=== PATIENT | male | born 2000 | race African-American/Black ===

== ENCOUNTER 2020-06-01 17:46 | Day surgery (SDC) | payer MEDICAID, OTHER ==
[~2020-06-01] VITALS: Ht 177.8 cm; Wt 76.0 kg
--- NOTE | 2020-06-01 19:13 | ECGEPIP ---
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
[2020-06-01 19:15] LABS: BASO % 0.7 % (0.0-1.0); EOS # 0.3 10^3/uL (0.0-0.5); EOS % 4.5 % (0.0-3.0); HEMATOCRIT 51.5 % (42.0-52.0); HEMOGLOBIN 16.8 g/dl (13.5-17.5); LYMPH # 1.7 10^3/uL (1.5-5.0); LYMPH % 29.9 % (24.0-44.0); MEAN CORPUSCULAR HEMOGLOBIN 27.7 pg (27.0-33.0); MEAN CORPUSCULAR HGB CONC 32.6 g/dl (32.0-36.5); MONO # 0.4 10^3/uL (0.0-0.8); MONO % 6.8 % (2.0-8.0); NEUTROPHILS # 3.3 10^3/uL (1.5-8.5); NEUTROPHILS % 57.9 % (36.0-66.0); PLATELET COUNT, AUTOMATED 191 10^3/uL (150-450); RED BLOOD COUNT 6.06 10^6/uL (4.30-6.10); WHITE BLOOD COUNT 5.7 10^3/uL (4.0-10.0)
[2020-06-01] MEDS ORDERED: ISOVUE-370 76% 100ML VIAL As Ordered ONE (19:20)
--- NOTE | 2020-06-01 19:55 | REPVR ---
PROCEDURE INFORMATION: Exam: CT Neck With Contrast Exam date and time: 06/01/2020 7:21 PM Age: 19 years old Clinical indication: Dysphagia / difficulty swallowing; Additional info: Unable to swallow ? perforation on x-ray TECHNIQUE: Imaging protocol: Computed tomography images of the neck with intravenous contrast. Radiation optimization: All CT scans at this facility use at least one of these dose optimization techniques: automated exposure control; mA and/or kV adjustment per patient size (includes targeted exams where dose is matched to clinical indication); or iterative reconstruction. Contrast material: ISOVUE 370; Contrast volume: 75 ml; Contrast route: INTRAVENOUS (IV); COMPARISON: No relevant prior studies available. FINDINGS: Nasopharynx: Adenoidal tonsillar hypertrophy. Oropharynx: Mild thickening of the tonsillar pillars demonstrated bilaterally with small gas locules demonstrated possibly representing abscesses or micro abscesses. Hypopharynx: Unremarkable. Larynx: Unremarkable. Normal epiglottis. Retropharyngeal space: Unremarkable. Submandibular/Parotid glands: Normal. Glands are normal in size. Thyroid: Normal. No enlarged or calcified nodules. Lymph nodes: Unremarkable. No lymphadenopathy. Trachea: Visualized trachea is unremarkable. Lungs: Unremarkable as visualized. Bones/joints: Unremarkable. No acute fracture. Soft tissues: Unremarkable. No significant soft tissue swelling. IMPRESSION: 1. Adenoidal tonsillar hypertrophy. 2. Mild thickening of the tonsillar pillars demonstrated bilaterally with small gas locules demonstrated possibly representing abscesses or micro abscesses. Electronically signed by: Maynor Cantor On 06/01/2020 19:55:33 PM
[2020-06-01] MEDS ORDERED: dexameTHASONE 20MG/5ML VIAL (J1100 PER 1MG) IV ONE (20:20)
[2020-06-01] MEDS ORDERED: AMPICILLIN SOD/SULBACTAM SOD 3 GM in D5W MINI-BAG PLUS 100 ML IV ONE (20:20)
[2020-06-01] MEDS ORDERED: MIDAZOLAM INJ 2MG/2ML VIAL (J2250 PER 1MG) As Ordered ONE (22:40)
[2020-06-01] MEDS ORDERED: propofoL 200 MG/20 ML VIAL As Ordered ONE (22:40)
[2020-06-01] MEDS ORDERED: ROCURONIUM BROMIDE 50 MG/5 ML VIAL As Ordered ONE (22:40)
[2020-06-01] MEDS ORDERED: LIDOCAINE 2% 100MG/5ML SDV (FOR ANES.) As Ordered ONE (22:40)
[2020-06-01] MEDS ORDERED: ONDANSETRON 4MG/2ML VIAL As Ordered ONE (22:41)
[2020-06-01] MEDS ORDERED: fentaNYL 100 MCG/2 ML INJECTION (J3010) As Ordered ONE (22:41)
[2020-06-01] MEDS ORDERED: dexameTHASONE 4 MG/ML 1ML VIAL (J1100 PER 1MG) As Ordered ONE (22:41)
[2020-06-01] MEDS ORDERED: SUCCINYLCHOLINE 100 MG/5 ML SYRINGE (J0330) As Ordered ONE (23:06)
--- NOTE | 2020-06-02 00:17 | ROOR ---
Patient Name: Garcia Tomlinson Procedure Date: 06/01/2020 9:27 PM Date of : 2000 Age: 19 Room: Main OR Gender: Male Note Status: Finalized Procedure: Upper GI endoscopy Indications: Foreign body in the esophagus Providers: Den GEE MD Referring MD: 3. Emergency Dept 3. Emergency Dept Requesting Provider: Medicines: Monitored Anesthesia Care Complications: No immediate complications. Procedure: Pre-Anesthesia Assessment: - The heart rate, respiratory rate, oxygen saturations, blood pressure, adequacy of pulmonary ventilation, and response to care were monitored throughout the procedure. The Endoscope was introduced through the mouth, and advanced to the second part of duodenum. The upper GI endoscopy was accomplished without difficulty. The patient tolerated the procedure well. Findings: Food was found at the gastroesophageal junction. Removal of food was accomplished. Mildly severe esophagitis with no bleeding was found at the gastroesophageal junction. This was biopsied with a cold forceps for histology. Reduced caliber esophagus with mild mucosal edema was found in the entire esophagus. Biopsies were taken with a cold forceps to rule out Eosinophilic esophagitis. The entire examined stomach was normal. Biopsies were taken with a cold forceps for Helicobacter pylori testing. The examined duodenum was normal. Impression: - Food at the gastroesophageal junction. Removal was successful. - Mildly severe esophagitis at the distal esophagus. Biopsied. - Mildly reduced caliber esohagus with mucosal edema. Biopsied to rule out Eosinophilic Esophagitis. - Normal stomach. Biopsied. - Normal examined duodenum. Recommendation: - Use Prilosec (omeprazole) 40 mg PO daily . - INCIDENTALLY: Despite the lack of symptoms, your CT scan of the neck showed at least moderate tonsillitis. Would recommend 10 day course of Augmentin, and follow up with ENT in the next 7-10 days. Procedure Code(s): --- Professional --- 40811, Esophagogastroduodenoscopy, flexible, transoral; with removal of foreign body(s) 03916, Esophagogastroduodenoscopy, flexible, transoral; with biopsy, single or multiple Diagnosis Code(s): --- Professional --- T18.108A, Unspecified foreign body in esophagus causing other injury, initial encounter K20.8, Other esophagitis T18.128A, Food in esophagus causing other injury, initial encounter CPT copyright 2019 [employer]. All rights reserved. The codes documented in this report are preliminary and upon specialty finishing utility person review may be revised to meet current compliance requirements. Den Gee MD Den GEE MD 06/02/2020 12:17:11 AM Electronically signed by Den GEE MD Number of Addenda: 0 Note Initiated On: 06/01/2020 9:27 PM Estimated Blood Loss: Estimated blood loss: none.
[2020-06-02] MEDS ORDERED: LR 1,000 ML IV SCH (00:30)
[2020-06-02] MEDS ORDERED: fentaNYL 100 MCG/2 ML INJECTION (J3010) IV PRN (00:30)
[2020-06-02] MEDS ORDERED: ONDANSETRON 4MG/2ML VIAL IV PRN (00:30)
[2020-06-02] MEDS ORDERED: METOCLOPRAMIDE INJ 10MG/2ML VIAL (J2765 PER 1) IV PRN (00:30)
[2020-06-02 00:55] VITALS: BP 120/70
[2020-06-02] MEDS ORDERED: OMEP40CA97 PO (01:14)
[2020-06-02] MEDS ORDERED: AUGM875T28 PO (01:15)
== END 2020-06-02 01:45 | disposition home or self-care (01) ==
LOC: M ED 17:46 → M SDC 21:28 → M MS5PR 06-02 00:50 → M SDC 06-02 01:45
PROVIDERS: ATTEND Internal Medicine Gastroenterology
DX: K29.50 Unspecified chronic gastritis without bleeding (principal); A04.8 Other specified bacterial intestinal infections; K20.80 Other esophagitis without bleeding; T18.128A Food in esophagus causing other injury, initial encounter; Y92.89 Other specified places as the place of occurrence of the external cause; J03.90 Acute tonsillitis, unspecified; J45.909 Unspecified asthma, uncomplicated
CPT/HCPCS: 43239; 43247; 70491; 80047; 85025; 86850; 86900; 86901; 88305; 93005; 96374; 96375; 99284; J0330; J1100; J2250; J2405; J3010; Q9967; U0002